=== PATIENT | female | born 1995 | race Two or more races ===

== ENCOUNTER 2022-11-13 14:00 | Emergency (ER) | payer OTHER ==
[2022-11-13 14:22] VITALS: BP 124/70; PULSE 80; RESP 17; TEMP 98.2; BMI 30.2
== END 2022-11-13 15:27 | disposition home or self-care (01) ==
LOC: JERFT 14:00 → JER 14:00 → JERFT 15:27
DX: S42.022A Displaced fracture of shaft of left clavicle, initial encounter for closed fracture (principal); S02.2XXA Fracture of nasal bones, initial encounter for closed fracture; Y04.8XXA Assault by other bodily force, initial encounter
CPT/HCPCS: 70160-TC-FY; 73000-TC-LT-FY; 99284-25